=== PATIENT | male | born 1955 | race African-American/Black ===

== ENCOUNTER 2018-05-15 14:13 | Emergency (ER) | payer MEDICARE, MEDICAID ==
[~2018-05-15] VITALS: Ht 185.4 cm; Wt 121.0 kg
[~2018-05-15 14:13] MED LIST: ACET500C42 PO; ATOR10TA69 PO; FOLI-43 PO; FOLI1CAP13 PO; NEPVIT PO; RANI150T7 PO; SERT25TA74 PO; TRAZ-212 PO
[2018-05-15] MEDS ORDERED: SODIUM CHLORIDE 0.9% 1,000 ML IV ONE (15:17)
[2018-05-15] MEDS ORDERED: ONDANSETRON HCL 4MG/2ML INJ IV STA (15:17)
[2018-05-15] MEDS ORDERED: MECLIZINE 25MG TABLET PO ONE (15:30)
[2018-05-15] MEDS ORDERED: ASPIRIN 81MG TABLET PO ONE (15:30)
[2018-05-15 17:02] LABS: BASOPHILS % 0.7 % (0.0-2.0); EOSINOPHILS % 1.6 % (0.0-5.0); HEMATOCRIT. 32.7 % (42.0-52.0); HEMOGLOBIN. 10.9 g/dL (14.0-18.0); LYMPHOCYTES % 19.8 % (20.0-50.0); MEAN CORPUSCULAR VOLUME 98.7 fL (80.0-94.0); MEAN PLATELET VOLUME 7.8 fl (7.4-10.4); MONOCYTES % 14.3 % (2.0-8.0); NEUTROPHILS % 63.6 % (40.0-76.0); PLATELET 179 x1000/uL (130-400); RED BLOOD CELL COUNT 3.32 mill/uL (4.7-6.1); RED CELL DISTRIBUTION WIDTH 16.3 % (11.6-14.6)
[2018-05-15 17:07] LABS: CHLORIDE 95 mEq/L (98-107)
[2018-05-15 17:10] LABS: INR 1.2; PARTIAL THROMBOPLASTIN TIME 28.4 sec (23.4-31.0); PROTHROMBIN TIME 11.8 sec (9.1-11.1)
[2018-05-15 17:11] LABS: ETHANOL BLOOD < 10 mg/dL
[2018-05-15 20:15] VITALS: BP 110/54
== END 2018-05-15 20:26 ==
LOC: ER 16:15 → CANBEDREQ 18:05 → ER 20:26
DX: I12.0 Hypertensive chronic kidney disease with stage 5 chronic kidney disease or end stage renal disease (principal); E11.22 Type 2 diabetes mellitus with diabetic chronic kidney disease; N18.6 End stage renal disease; R42 Dizziness and giddiness; R53.1 Weakness; R11.0 Nausea; Z99.2 Dependence on renal dialysis; Z79.899 Other long term (current) drug therapy
CPT/HCPCS: 36415; 70450; 71045; 80053; 83605; 83880; 84484; 85025; 85610; 85730; 87040; 93005; 96361; 96374; 99284; G0482; J2405; J7030; J7040; J8597